=== PATIENT | female | born 1935 | race Caucasian/White ===

== ENCOUNTER 2017-07-20 11:49 | Emergency (ER) | payer MEDICARE, BC ==
[2017-07-20 12:36] VITALS: BP 120/64
--- NOTE | 2017-07-20 13:04 | EDM.PDOC ---
ED HPI GENERAL MEDICAL PROBLEM - General Chief Complaint: General Stated Complaint: falling, dizzy Time Seen by Provider: 07/20/17 12:57 Source of Information: Reports: Patient, Family History Limitations: Reports: Other (dementia stated by family) - History of Present Illness INITIAL COMMENTS - FREE TEXT/NARRATIVE: Patient presented to the ER with family. Onset: Other (Has happened several times in the past months, but happened again today just prior to arrival) Onset Date: 07/20/17 Onset Time: 12:00 - Related Data Allergies Allergy/AdvReac Type Severity Reaction Status Date / Time Iodinated Contrast- Oral and Allergy Other Verified 07/20/17 12:24 IV Dye [Iodinated Contrast Media - IV Dye] Home Meds: Home Meds Aspirin [Torin Chewable Aspirin] 81 mg PO DAILY 12/08/14 [History] Atenolol 50 mg PO DAILY 12/08/14 [History] Calcium Carb & Citrate/Vit D3 [Calcium + D3 ER Tablet] 1 cap PO DAILY 12/08/14 [ History] Diazepam [Valium] 10 mg PO ASDIRECTED PRN 12/08/14 [History] Digoxin 250 mcg PO DAILY 12/08/14 [History] Multivitamin [Multi Vitamin Daily] 1 cap PO DAILY 12/08/14 [History] Nitroglycerin 0.4 mg SL ASDIRECTED PRN 12/08/14 [History] atorvaSTATin [Lipitor] 20 mg PO DAILY 12/08/14 [History] Amitriptyline [Elavil] 100 mg PO BEDTIME 01/22/15 [History] Past Medical History HEENT History: Reports: Impaired Vision, Other (See Below) Other HEENT History: WEARS CORRECTIVE LENSES Cardiovascular History: Reports: Arrhythmia, High Cholesterol, Hypertension, Pacemaker, PTCA, Syncope, Other (See Below) Other Cardiovascular History: HX OF SICK SINUS SYNDROME REQUIRED PACER PLACEMENT Respiratory History: Reports: None Gastrointestinal History: Reports: Bowel Obstruction, Chronic Constipation Genitourinary History: Reports: None [employer] History: Reports: Musculoskeletal History: Reports: Osteoarthritis Other Musculoskeletal History: DEGENERATIVE JOINT DISEASE Neurological History: Reports: TIA, Other (See Below) Other Neuro History: mild shown on previous scans Psychiatric History: Reports: Anxiety Endocrine/Metabolic History: Reports: Diabetes, Type II, Other (See Below) Other Endocrine/Metabolic History: borderline Hematologic History: Reports: Other (See Below) Other Hematologic History: LYMPHOCYTOSIS Immunologic History: Reports: None Oncologic (Cancer) History: Reports: Breast, Pancreatic Dermatologic History: Reports: Seborrheic Dermatitis - Infectious Disease History Infectious Disease History: Reports: Chicken Pox, Influenza, Measles, Mumps, Rubella - Past Surgical History HEENT Surgical History: Reports: Cataract Surgery, Other (See Below) Cardiovascular Surgical History: Reports: Pacer, Other (See Below) Respiratory Surgical History: Reports: None GI Surgical History: Reports: Cholecystectomy Female Surgical History: Reports: Breast Biopsy, Mastectomy Oncologic Surgical History: Reports: Biopsy of Breast, Mastectomy, Other (See Below) Other Oncologic Surgeries/Procedures: right mastectomy Social & Family History - Family History Family Medical History: Noncontributory Cardiac: Reports: CAD, Heart Failure, High Cholesterol, Hypertension - Tobacco Use Smoking Status *Q: Former Smoker Years of Tobacco use: 50 Packs/Tins Daily: 1 Used Tobacco, but Quit: Yes Month Tobacco Last Used: 1997 Second Hand Smoke Exposure: No - Caffeine Use Caffeine Use: Reports: Coffee - Alcohol Use Days Per Week of Alcohol Use: 0 - Recreational Drug Use Recreational Drug Use: No Drug Use in Last 12 Months: No - Living Situation & Occupation Living situation: Reports: with Family Occupation: Retired ED ROS GENERAL - Review of Systems Review Of Systems: See Below Constitutional: Reports: Other (Dizziness earlier today) HEENT: Reports: No Symptoms, Glasses Respiratory: Reports: No Symptoms Cardiovascular: Reports: Lightheadedness (prior to arrival, not at this time.) Endocrine: Reports: No Symptoms GI/Abdominal: Reports: Constipation : Reports: No Symptoms Musculoskeletal: Reports: No Symptoms Skin: Reports: No Symptoms Neurological: Reports: No Symptoms Psychiatric: Reports: No Symptoms Hematologic/Lymphatic: Reports: No Symptoms Immunologic: Reports: No Symptoms ED EXAM, GENERAL - Physical Exam Exam: See Below Exam Limited By: No Limitations General Appearance: Alert, WD/WN, No Apparent Distress Eye Exam: Bilateral Eye: Normal Inspection, PERRL Ears: Normal External Exam Nose: Normal Inspection Throat/Mouth: Normal Inspection Head: Atraumatic, Normocephalic Neck: Normal Inspection Respiratory/Chest: No Respiratory Distress, Lungs Clear, Normal Breath Sounds Cardiovascular: Normal Peripheral Pulses, Regular Rate, Rhythm, No Edema, No Gallop, No JVD, No Murmur, No Rub Peripheral Pulses: 2+: Radial (L), Radial (R) GI/Abdominal: Normal Bowel Sounds, Soft, Non-Tender Back Exam: Normal Inspection, Full Range of Motion Extremities: Normal Inspection, Normal Range of Motion Neurological: Alert, Oriented, CN II-XII Intact Psychiatric: Normal Affect, Normal Mood Skin Exam: Warm, Dry, Intact, Normal Color Lymphatic: No Adenopathy EKG INTERPRETATION EKG Date: 07/20/17 Time: 13:33 Rhythm: Other (paced) Comparison: No Change EKG Interpretation Comments: Paced rhythm, rate 60, no further interpretation Course - Vital Signs Last Recorded V/S: Last Vital Signs Temp 36.6 C 07/20/17 12:35 Pulse 63 07/20/17 12:35 Resp 18 07/20/17 12:35 BP 120/64 07/20/17 12:35 Pulse Ox 92 L 07/20/17 12:35 - Orders/Labs/Meds Orders: Active Orders 24 hr Category Date Time Status EKG Documentation Completion [RC] STAT Care 07/20/17 12:55 Active Labs: Laboratory Tests 07/20/17 07/20/17 07/20/17 Range/Units 13:00 13:04 13:04 WBC 11.1 H (5.0-10.0) 10^3/uL RBC 4.28 (4.2-5.4) 10^6/uL Hgb 13.6 (12.0-16.0) g/dL Hct 42.1 (37.0-47.0) % MCV 98.4 (80-100) fL MCH 31.8 (27.0-34.0) pg MCHC 32.3 L (33.0-35.0) g/dL Plt Count 402 (150-450) 10^3/uL Neut % (Auto) 51.9 (42.2-75.2) % Lymph % (Auto) 34.0 (20.5-50.1) % [place] % (Auto) 11.5 H (2-8) % Eos % (Auto) 2.1 (1.0-3.0) % Baso % (Auto) 0.5 (0.0-1.0) % Sodium 141 (135-145) mmol/L Potassium 3.9 (3.6-5.0) mmol/L Chloride 101 (101-111) mmol/L Carbon Dioxide 29.0 (21.0-31.0) mmol/L Anion Gap 14.9 BUN 17 (7-18) mg/dL Creatinine 1.3 (0.6-1.3) mg/dL Est Cr Clr Drug Dosing 32.81 mL/min Estimated GFR (MDRD) 39 BUN/Creatinine Ratio 13.07 Glucose 86 (74-105) mg/dL Calcium 9.5 (8.4-10.2) mg/dl Magnesium 2.0 (1.8-2.5) mg/dL Total Bilirubin 0.8 (0.2-1.0) mg/dL AST 27 (10-42) IU/L ALT 32 (10-60) IU/L Alkaline Phosphatase 66 (42-121) IU/L Total Protein 7.0 (6.7-8.2) g/dl Albumin 3.9 (3.2-5.5) g/dl Globulin 3.1 Albumin/Globulin Ratio 1.26 TSH, Ultra Sensitive (0.35-7.0) uIu/mL Urine Color Yellow (YELLOW) Urine Appearance Clear (CLEAR) Urine pH 6.0 (5.0-9.0) Ur Specific [place] 1.010 (1.005-1.030) Urine Protein Negative (NEGATIVE) Urine Glucose (UA) Negative (NEGATIVE) Urine Ketones Negative (NEGATIVE) Urine Occult Blood Negative (NEGATIVE) Urine Nitrite Negative (NEGATIVE) Urine Bilirubin Negative (NEGATIVE) Urine Urobilinogen 0.2 (0.2-1.0) mg/dL Ur Leukocyte Esterase Trace H (NEGATIVE) Urine RBC Not seen /HPF Urine WBC 0-5 (0-5/HPF) /HPF Ur Epithelial Cells Rare /HPF Urine Bacteria Few (0-FEW/HPF) /HPF Urine Mucus Few H /LPF 07/20/17 Range/Units 13:04 WBC (5.0-10.0) 10^3/uL RBC (4.2-5.4) 10^6/uL Hgb (12.0-16.0) g/dL Hct (37.0-47.0) % MCV (80-100) fL MCH (27.0-34.0) pg MCHC (33.0-35.0) g/dL Plt Count (150-450) 10^3/uL Neut % (Auto) (42.2-75.2) % Lymph % (Auto) (20.5-50.1) % [place] % (Auto) (2-8) % Eos % (Auto) (1.0-3.0) % Baso % (Auto) (0.0-1.0) % Sodium (135-145) mmol/L Potassium (3.6-5.0) mmol/L Chloride (101-111) mmol/L Carbon Dioxide (21.0-31.0) mmol/L Anion Gap BUN (7-18) mg/dL Creatinine (0.6-1.3) mg/dL Est Cr Clr Drug Dosing mL/min Estimated GFR (MDRD) BUN/Creatinine Ratio Glucose (74-105) mg/dL Calcium (8.4-10.2) mg/dl Magnesium (1.8-2.5) mg/dL Total Bilirubin (0.2-1.0) mg/dL AST (10-42) IU/L ALT (10-60) IU/L Alkaline Phosphatase (42-121) IU/L Total Protein (6.7-8.2) g/dl Albumin (3.2-5.5) g/dl Globulin Albumin/Globulin Ratio TSH, Ultra Sensitive 1.06 (0.35-7.0) uIu/mL Urine Color (YELLOW) Urine Appearance (CLEAR) Urine pH (5.0-9.0) Ur Specific [place] (1.005-1.030) Urine Protein (NEGATIVE) Urine Glucose (UA) (NEGATIVE) Urine Ketones (NEGATIVE) Urine Occult Blood (NEGATIVE) Urine Nitrite (NEGATIVE) Urine Bilirubin (NEGATIVE) Urine Urobilinogen (0.2-1.0) mg/dL Ur Leukocyte Esterase (NEGATIVE) Urine RBC /HPF Urine WBC (0-5/HPF) /HPF Ur Epithelial Cells /HPF Urine Bacteria (0-FEW/HPF) /HPF Urine Mucus /LPF - Radiology Interpretation Free Text/Narrative:: CT of the head w/o contrast: Conclusion: Atrophy. Chronic microvascular ischemic changes. No new signs cerebral/cerebellar infarct or intracranial bleed. No intracranial mass or hydrocephalus. CT Results Date: 07/20/17 CT Results Time: 14:20 Departure - Departure Time of Disposition: 15:01 Disposition: Home, Self-Care 01 Condition: Fair Clinical Impression: Dizziness - Discharge Information Instructions: Dizziness, [id number] Referrals: Joselito Pop MD [Primary Care Provider] - Forms: ED Department Discharge Additional Instructions: Follow up with Dr. Pop
--- NOTE | 2017-07-20 14:18 | CT ---
Clinical history: 82-year-old hypertensive, diabetic female complaining of dizziness and falling who was reported 13 October 2016 exam to have "new abnormality cerebellum on the left suggesting infarct ". Reevaluate please. No trauma. Scan technique: Volume acquisition of data unenhanced CT scan of the head and brain obtained with pat ient lying supine on the Siemens multi slice scanner [place], [place]. All data archived in the PACS system for storage, reformatting and study. Interpretation: Generalized, age-appropriate, symmetric cerebral and cerebellar atrophy ("infarct cerebellum on the l eft" much less apparent than on September 2016). Scattered microvascular ischemic changes but no new signs of supratentorial or posterior fossa mass l esion, infarct or acute intracerebral/intraventricular/subarachnoid bleed. (Physiologic midline pinea l and faint choroid plexus calcifications} Uniformly thick bony calvarium and symmetric clear pneumatization of the mastoid and paranasal sinuse s. No sign of skull fracture, underlying brain contusion or epidural/subdural hematoma. CONCLUSION: Atrophy. Chronic microvascular ischemic changes. No new signs cerebral/cerebellar infarct or intracranial bleed. No intracranial mass or hydrocephalus .
--- NOTE | 2017-07-25 08:07 | EKG ---
07/20/2017 - CRISSY SANDS - This 12-lead EKG shows an atrial paced rhythm with a ventricular rate of 60. No other comments are made based on the presence of the paced rhythm. [facility] /[id number]
== END 2017-07-20 15:40 | disposition home or self-care (01) ==
LOC: DL.ED 11:49
DX: R42 Dizziness and giddiness (principal); H54.7 Unspecified visual loss; E78.00 Pure hypercholesterolemia, unspecified; I10 Essential (primary) hypertension; M19.90 Unspecified osteoarthritis, unspecified site; E11.9 Type 2 diabetes mellitus without complications; Z79.82 Long term (current) use of aspirin; Z79.899 Other long term (current) drug therapy; Z86.73 Personal history of transient ischemic attack (TIA), and cerebral infarction without residual deficits; Z85.3 Personal history of malignant neoplasm of breast; Z90.49 Acquired absence of other specified parts of digestive tract; Z87.891 Personal history of nicotine dependence
CPT/HCPCS: 36415; 70450; 80053; 81001; 83735; 84443; 85025; 93005; 93010; 99284; 99285